=== PATIENT | male | born 1990 | race Caucasian/White ===

== ENCOUNTER 2023-02-25 14:29 | Outpatient (CLI) | payer OTHER ==
--- NOTE | 2023-02-25 15:12 | Sleep Patient Instructions ---
Sleep Center Visit Summary - Patient Visit Information Reason for Visit: Initial consult for evaluation of sleep disordered breathing and other sleep issues. - Patient Instructions Instructions Attached: Sleep Study, Sleep Clinic Visit, Sleep Study Home Monitor Additional Instructions: You will be completing a sleep study, either an in-lab polysomnography (PSG) or home sleep study (HST). You will follow-up in the sleep care office after the sleep study is completed to hear the results and talk about therapy, if needed. You will be called by our office staff to schedule this appointment, but you may contact us with any questions. - Clinic Information Contact: [facility] [address] [place] [address] [email or web address] T: [phone]
--- NOTE | 2023-02-25 15:17 | SLEEP CARE CONSULTATION ---
Information from patient questionnaire entered by Seth Dowell. I have reviewed and concur with the information entered by Seth Dowell. This document represents the service I personally performed and the decisions made by me, Sammie Galarza ARNP. History of Present Illness Service Date and Time: 02/25/2023 1429 Reason for Visit: New patient Chief Complaint: reports: Unrefreshed sleep, Snoring, Observed pauses in breathing, Fatigue Date of Onset: 18MONTHS Usual bedtime: 9-10PM Time it takes to fall asleep: 30-60MINS Snores at night: Yes Observed to quit breathing while asleep: Yes Sleeps alone due to snoring: No Number of times waking at night: 1 Reasons for waking at night: reports: Choking, Snoring, Gasping for air (occasionally) Toss, Turn, or Twitch while sleeping: Yes Recalls having dreams: Yes (sometimes) Usually gets out of bed at: 530AM; weekends may sleep in a little later, 7-8 AM Feels refreshed in the morning: No Morning headache: No Sleepy or fatigued during the day: Yes Ever fallen asleep while driving: No Takes day naps: Yes (1 time a week, just depends) Dreams during day naps: No Prior sleep studies: No Additional HPI information: I had the pleasure of seeing DARIEL GOTTI today regarding the possibility of him having a sleep disorder. His current complaints are unrefreshed sleep, snoring, observed pauses in breathing and fatigue. He states his tells him that he stops breathing at night. He also snores. He states he is always fatigued during the day. He has tried to use wedges to elevate his head with limited success to reduce snoring. 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 Patient is and [place] in [place]. Have you smoked in the past 12 months: No (switched to vaping in 2018 and then stopped in 2019) Cigarettes per day (20/pack): 10 Years of smokin Quit date: 2017 Smoking Pack Years: 6.0 Alcohol use: Yes Alcohol amount and frequency: 1WEEK Caffeine use: Yes Caffeine amount and frequency: 2 CUPS EVERY DAY Family History Family history of sleep disordered breathing: Yes Family Hx Sleep Apnea: Father: Snoring, Sleep apnea - Treated, Sibling: Snoring Allergies and Home Medications Known drug allergies: No Drug allergies reviewed: Yes Home medication list reviewed: Yes (no daily medications) Review of Systems Weight gain over past 5 years: 15 Cardiovascular: denies: high blood pressure Respiratory: denies: shortness of breath Gastrointestinal: reports: heartburn, difficulty swallowing Neurological: denies: headaches Psychiatric: reports: anxiety. denies: depression Ear/Nose/Throat: reports: wisdom teeth removed. denies: tonsillectomy Musculoskeletal: reports: joint pain Physical Exam Vital signs obtained and entered by: SETH Leblanc MA Blood Pressure: 134/84 (LEFT ARM) Cuff size: long Heart Rate: 77 O2 Saturation: 97 Height: 5 ft 8 in Weight: 222 lb Body Mass Index: 33.7 BMI Classification: Obese Neck circumference: 16.5 Mouth and throat: narrow oropharynx Soft palate: long Hard palate: normal Uvula: normal Uvula visualization: 25% Mallampati Class III Tongue: enlarged in size with teeth de [place] rosa on lateral edges Tonsils: small Neck: normal w/o lymphadenopathy or thyromegaly Heart: regular rate and rhythm Lungs: clear bilaterally Impression and Plan 1. Suspected Obstructive Sleep Apnea-Hypopnea Syndrome, as suggested by a history of loud and irregular snoring, observed cessation of breath while asleep, gasping or choking in sleep, unrefreshed sleep and cognitive impairment. Narrow oropharynx and obesity are common predisposing factors for obstructive sleep apnea-hypopnea syndrome. I recommend proceeding to polysomnography to confirm the diagnosis and to assess severity. If the patient has significant sleep disordered breathing, a manual CPAP titration study will also be performed to find the optimal treatment pressure. I informed the patient of what the sleep studies involve and after some discussion, obtained agreement to proceed. The pathophysiology of obstructive sleep apnea-hypopnea syndrome was discussed with the patient and health risks of cardiovascular and cerebrovascular disease if not treated. Risks of drowsy driving discussed in detail and patient advised to avoid long distance driving and to rod puller and coiler at the first sign of drowsiness. Patient agreed to plan. * Schedule polysomnography +- manual CPAP titration study and return in 1-2 weeks after the study to discuss result and initiate therapy. * Avoid long distance driving or driving when feeling sleepy. * Avoid alcohol, sedative and muscle relaxant around bedtime. * Attempt to lose weight. * Review instructions provided by trained office staff on how to prepare for the sleep study. * Return for follow-up after sleep study completed. Counseling Topics: Weight loss health impact Visit Type: In Office Time Spent with Patient (minutes): 30 Provider Statement: I spent 100% of the Face to Face Visit with the patient with greater than 50% spent counseling the patient and coordination of care.
[2023-02-25 15:22] VITALS: BP 134/84
== END 2023-02-25 14:30 | disposition home or self-care (01) ==
LOC: SC 14:29
PROVIDERS: ATTEND Nurse Practitioner Family
DX: R53.83 Other fatigue (principal); E66.9 Obesity, unspecified; Z68.33 Body mass index [BMI] 33.0-33.9, adult; Z87.891 Personal history of nicotine dependence
CPT/HCPCS: 99203; 99212

== ENCOUNTER 2023-03-04 08:00 | Outpatient (CLI) | payer OTHER ==
[2023-03-05 22:55] LABS: CHLAMYDIA TRACHOMATIS DNA NEGATIVE (NEGATIVE); NEISSERIA GONORRHOEAE DNA NEGATIVE (NEGATIVE); TRICHOMONAS VAGINALIS DNA NEGATIVE (NEGATIVE)
== END 2023-03-04 23:59 | disposition home or self-care (01) ==
LOC: LAB.N 08:00
PROVIDERS: ATTEND Physician Assistant
DX: R39.89 Other symptoms and signs involving the genitourinary system (principal)
CPT/HCPCS: 87086; 87491; 87591; 87661

== ENCOUNTER 2023-03-06 15:18 | Emergency (ER) | payer OTHER ==
--- NOTE | 2023-03-06 15:40 | ED Physician Documentation ---
PD HPI ABD PAIN - Stated complaint Stated Complaint: BACK PX - Chief complaint Chief Complaint: General - History obtained from History obtained from: Patient - History of Present Illness Timing - onset: How many days ago (3) Timing - duration: Days (3) Timing - details: Still present, Waxing and waning Quality: Cramping, Aching, Pain Location: RLQ Radiation: Right flank Improved by: No: Laying still, BM Worsened by: No: Moving, Breathing Associated symptoms: Nausea, Dysuria (some discomfort with urination and urine test showed some blood in urine at Walk In 2 days ago.). No: Fever, Vomiting Similar symptoms before: Has not had sx before Recently seen: Clinic (walk in 2 days ago.) Review of Systems Constitutional: denies: Fever, Chills Nose: denies: Rhinorrhea / runny nose, Congestion Throat: denies: Sore throat Cardiac: denies: Chest pain / pressure, Palpitations Respiratory: denies: Dyspnea, Cough PD PAST MEDICAL HISTORY - Past Medical History Cardiovascular: None Respiratory: None Endocrine/Autoimmune: None - Present Medications Home Medications: Ambulatory Orders Medication Instructions Recorded Confirmed No Known Home Medications 02/25/23 02/25/23 - Allergies Allergies/Adverse Reactions: Allergies Allergy/AdvReac Type Severity Reaction Status Date / Time No Known Drug Allergies Allergy Verified 03/06/23 15:29 PD ED PE NORMAL - Vitals Vital signs reviewed: Yes - General General: Alert and oriented X 3, No acute distress, Well developed/nourished - Neck Neck: Supple, no meningeal sign, No adenopathy - Cardiac Cardiac: RRR, No murmur - Respiratory Respiratory: Clear bilaterally - Abdomen Abdomen: Normal bowel sounds, Soft, Non distended, No organomegaly, Other (spome tender without guarding nor percussion tender right mid to lower abd. No rash nor sores. back with some right flank pain to percussion. No rash/sores. ) Results - Vitals Vitals: Vital Signs - 24 hr 03/06/23 03/06/23 15:23 17:11 Temperature 36.4 C L Heart Rate 77 67 Respiratory 17 16 Rate Blood Pressure 126/74 142/99 H O2 Saturation 98 100 Oxygen O2 Source Room air - Rads (name of study) KUB CT Relevant Findings:: Prelim report reviewed (no kidney stones nor hydroneophrosis. No other acute process. Moderate stool right ascending colon.), See rad report PD Medical Decision Making - ED course Complexity details: reviewed results (KUB CT without stones, hydronephrosis, nor other acute process for the pain. /sp appy. comment by radiology is moderate amount stool right/ascending abd. ), considered differential (pain sounds reasonable for kidney stone but consider other causes. Discussion with patient, since pain for few days now, is to do CT. He had UA in walk in 2 days ago, so defer here. ), d/w patient, d/w family (spouse) Departure - Departure Disposition: Home, Self Care Clinical Impression: Right sided abdominal pain Condition: Stable Record reviewed to determine appropriate education?: Yes Instructions: ED Abdominal Pain Unkn Cause Male Comments: Your CT scan does not show any signs of kidney stones nor kidney inflammation or swelling. Your appendix is missing as you new. The CT report does not identify any other obvious acute abnormality. They do comment on a moderate amount of stool in the right colon so this may be causing some element of pain just from stretching of the intestine. I would suggest a stool softener this evening and tomorrow. You can use your 's MiraLAX at home dose tonight and 2 or 3 tomorrow. Additionally you could use docusate 100 mg daily for the next 7 to 10 days to keep things modulated soft. Regarding the pain, I would suggest anti-inflammatory such as ibuprofen 6 or milligrams 2-3 times daily with food. To that add Tylenol every 4-6 hours if needed. Follow-up with your primary if not improved over the next few days and return or follow-up sooner if you develop other symptoms as well that may suggest alternate diagnoses (skin rash, muscular component, fevers, more discomfort urinating, etc.). Otherwise normal activity is okay. Regular diet. Discharge Date/Time: 03/06/23 17:28
--- OUTSIDE RECORDS SUMMARY | 2023-03-06 15:46 | EXTERNAL MEDICAL SUMMARY RPT | Continuity of Care Document ---
Author Name Unknown Address [address] [place] [address] Phone Organization [facility] Address [address] [place] [address] Phone Care Team Providers Care Clinical Lab Assistant Name Role Phone Unavailable Unavailable Unavailable Douglas Diaz, Liban Unavailable Unavailabl e Medications date description facility 2022-12-07 00:00 No Known Medications All Problems date description facility 2022-12-07 00:00 Lesion of ulnar nerve All 2022-12-07 00:00 Ulnar neuropathy All 2022-12-07 00:00 Lesion of ulnar nerve, left upp er limb All Procedures date description facility 2022-12-07 00:00 Visit Code Hold All Social History date description facility 2022-12-07 00:00 Unknown if ever smoked All 2022-12-08 00:00 Unknown if ever smoked All Vital Signs date measurement value units 2022-12-07 00:00 BMI 35.37 kg/m2 2022-12-07 00:00 BP_diastolic 90 mmHg 2022-12-07 00:00 BP_systolic 150 mmHg 2022-12-07 00:00 heart_rate 83 /min 2022-12-07 00:00 height_metric 172.72 cm 2022-12-07 00:00 height_standard 68 in 2022-12-07 00:00 respiration_rate 18 /min 2022-12-07 00:00 temperature_metric 36.11 C 2022-12-07 00:00 temperature_standard 97 F 2022-12-07 00:00 weight_metric 105.14 kg 2022-12-07 00:00 weight_standard 231.8 lb
--- NOTE | 2023-03-06 16:52 | CT Report ---
PROCEDURE: CT abdomen pelvis without contrast INDICATIONS: right abd to flank pain TECHNIQUE: A CT scan of the abdomen and pelvis was performed without the use of intravenous contrast. Images we re recorded and evaluated at appropriate window settings. Reformats: coronal and sagittal. For radiat ion dose reduction, the following was used: automated exposure control, adjustment of mA and/or kV ac cording to patient size. COMPARISON: None. FINDINGS: Image quality: Excellent. Lung bases and heart: Unremarkable. Liver: No solid mass. Gallbladder and biliary tree: Spleen: Splenomegaly, 14.1 cm Pancreas: No pancreatic ductal dilation. Adrenals: No adrenal nodule. Kidneys and ureters: No hydronephrosis. No renal cystic lesion which requires follow up. No solid mas s. Bowel and peritoneum: No bowel distension. No pathologic free fluid. Appendectomy. Moderate fecal ty ris in the right and transverse colon Lymph nodes: No central or retroperitoneal adenopathy. Vessels: No infrarenal aortic aneurysm. PELVIS Reproductive organs: Unremarkable. Bladder: No wall thickness, accounting for underdistention. Pelvic lymph nodes: No pelvic adenopathy by size criteria. Bones: No aggressive osseous abnormality. Other: No significant ventral or inguinal hernia. IMPRESSION: No evidence of nephrolithiasis or obstructive uropathy. Appendectomy. Moderate to fecal debris in the right and transverse colon. No obstruction. Reviewed by: Quinton Harvey MD on 03/06/2023 3:50 PM AKDT Approved by: Quinton Harvey MD on 03/06/2023 3:50 PM AKDT Station ID: [id number]
[2023-03-06] MEDS ORDERED: IBUPROFEN 600 MG TABLET PO STA (17:12)
[2023-03-06 17:14] VITALS: BP 142/99
== END 2023-03-06 17:28 | disposition home or self-care (01) ==
LOC: ED 15:18
DX: R10.31 Right lower quadrant pain (principal)
CPT/HCPCS: 74176; 99283; 99284; A9270

== ENCOUNTER 2023-03-14 23:04 | Emergency (ER) | payer OTHER ==
--- NOTE | 2023-03-14 23:47 | ED Physician Documentation ---
PD HPI MALE - Stated complaint Stated Complaint: MALE - Chief complaint Chief Complaint: General - History obtained from History obtained from: Patient - Additional information Additional information: Patient is a 33-year-old male presenting for evaluation of right testicular pain starting around 930. He describes it as a dull ache. It does radiate into the abdomen and back. He reports having similar episodes in the past of the testicular pain but it has not had the radiation that he is feeling tonight. In the past he reports that 1 episode was due to A varicocele. Patient denies any issues with urination. No blood with urination. No abnormal penile discharge or lesions.No fever. No nausea or vomiting. Review of Systems Constitutional: denies: Fever Cardiac: denies: Chest pain / pressure Respiratory: denies: Dyspnea GI: denies: Vomiting : reports: Testicular pain. denies: Dysuria PD PAST MEDICAL HISTORY - Past Medical History Cardiovascular: None Respiratory: None Endocrine/Autoimmune: None - Present Medications Home Medications: Ambulatory Orders Medication Instructions Recorded Confirmed No Known Home Medications 02/25/23 02/25/23 - Allergies Allergies/Adverse Reactions: Allergies Allergy/AdvReac Type Severity Reaction Status Date / Time No Known Drug Allergies Allergy Verified 03/06/23 15:29 PD ED PE NORMAL - General General: Alert and oriented X 3, No acute distress, Well developed/nourished - HEENT HEENT: Atraumatic, Moist mucous membranes - Neck Neck: Supple, no meningeal sign - Cardiac Cardiac: RRR - Respiratory Respiratory: No respiratory distress, Clear bilaterally - Abdomen Abdomen: Normal bowel sounds, Soft, Non tender, Non distended - Male Male : Sea Kayaking Guide present (CHASIDY Nam), Other (Right testicular tenderness to palpation, no swelling or erythema, no mass or firmness, normal cremasseteric reflex bilaterally, normal testicular lie) - Back Back: No CVA TTP Results - Vitals Vitals: Vital Signs - 24 hr 03/14/23 03/15/23 23:10 00:01 Temperature 36.2 C L Heart Rate 75 71 Respiratory 18 16 Rate Blood Pressure 131/84 H 128/78 O2 Saturation 98 99 Oxygen O2 Source Room air PD Medical Decision Making - ED course ED course: Patient presenting for evaluation of right testicular pain for the past 2 hours. Testicle with mild tenderness but with normal lie and intact cremasteric reflex. No erythema or swelling or firmness. Unfortunately ultrasound is not available in our hospital At the time of patient's presentation. We additionally do not have urology coverage. I did speak with ER physician at [facility]. They do have ultrasound but no urology. I then spoke with Dr. Ferrell at [facility] and he graciously accepted the patient for transfer. Patient is here with his and they prefer to go by POV. The understands the risks of driving themselves versus taking ambulance.They understand to go directly to the emergency department and not to stop elsewhere. Departure - Departure Disposition: 02 Transfer Acute Care Hosp Clinical Impression: Right testicular pain Condition: Stable Comments: Please go directly to [facility] emergency department. I spoke to Dr. Ferrell and they are expecting you in their emergency department. You need to have an ultrasound as soon as possible To make sure that your testicle is okay. Please do not stop anywhere else and go directly to the emergency department. Located in: [facility] Address: [address] [place] [id number] Discharge Date/Time: 03/15/23 00:01
[2023-03-15 00:07] VITALS: BP 128/78
== END 2023-03-15 00:01 | disposition short-term general hospital (02) ==
LOC: ED 23:04
DX: N50.811 Right testicular pain (principal)
CPT/HCPCS: 99284; 99285

== ENCOUNTER 2023-03-19 20:06 | Emergency (ER) | payer OTHER ==
--- NOTE | 2023-03-19 20:35 | ED Physician Documentation ---
History of Present Illness - Stated complaint Stated Complaint: MALE - Chief complaint Chief Complaint: General - Additonal information Additional information: 33-year-old male presents emergency department for evaluation of acute onset l eft testicular pain. He states that he has pain within the testicle but he feels there is a strain or pooling underneath the base of the penis. Patient was seen in this ER about 3 days ago for right scrotal and testicular pain. At that time no ultrasound was available and the patient went to [facility] where he had ultrasound imaging completed. He reports that they found calcium deposits within the scrotum and testes. The right testicular pain has a bated and the testicular pain in the left is new today. He reports that it feels different than the pain on the right side a few days ago. No dysuria. Review of Systems Constitutional: reports: Reviewed and negative : reports: Testicular pain. denies: Dysuria Skin: reports: Reviewed and negative PD PAST MEDICAL HISTORY - Past Medical History Cardiovascular: None Respiratory: None Endocrine/Autoimmune: None - Present Medications Home Medications: Ambulatory Orders Medication Instructions Recorded Confirmed No Known Home Medications 02/25/23 02/25/23 - Allergies Allergies/Adverse Reactions: Allergies Allergy/AdvReac Type Severity Reaction Status Date / Time No Known Drug Allergies Allergy Verified 03/19/23 20:11 PD ED PE NORMAL - General General: Alert and oriented X 3, No acute distress - Neck Neck: Supple, no meningeal sign - Cardiac Cardiac: RRR, No murmur - Respiratory Respiratory: No respiratory distress - Abdomen Abdomen: Normal bowel sounds, Soft - Male Male : Hedis Coordinator present (Roosevelt the RN), Other (Positive cremaster bilaterally with normal lie. Mild tenderness elicited with palpation of the left testie. There was no scrotal swelling erythema or lesions. No penile discharge.) Results - Vitals Vitals: Vital Signs - 24 hr 03/19/23 20:11 Temperature 36.5 C Heart Rate 80 Respiratory 16 Rate Blood Pressure 134/84 H O2 Saturation 98 Oxygen O2 Source Room air - Labs Labs: Laboratory Tests 03/19/23 20:34 Urine Color YELLOW Urine Clarity CLEAR Urine pH 6.0 Ur Specific [place] 1.010 Urine Protein NEGATIVE Urine Glucose (UA) NEGATIVE Urine Ketones NEGATIVE Urine Occult Blood NEGATIVE Urine Nitrite NEGATIVE Urine Bilirubin NEGATIVE Urine Urobilinogen 0.2 (NORMAL) Ur Leukocyte Esterase NEGATIVE Ur Microscopic Review NOT INDICATED Urine Culture Comments NOT INDICATED - Rads (name of study) scrotum US Relevant Findings:: Other (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 No torsion no hernia.) PD Medical Decision Making - ED course Complexity details: reviewed results, re-evaluated patient, d/w patient, d/w family ED course: 33-year-old male presents emergency department for evaluation of left testicular pain. Was seen in this emergency department several days ago for right testicular pain ultimately was transferred to [facility] where he reports an ultrasound was done and it showed microliths. He reports the pain today feels different than it did several days ago. Recently this patient has undergone CT imaging of the abdomen which was benign. He also had STI testing which was negative. Today in the emergency department his urinalysis as interpreted by myself is without findings of infection. His scrotal and testicular exam showed mild tenderness of the left testy but no scrotal erythema or swelling. He had normal cremasteric and lie. Subsequently an ultrasound again shows left testicular microliths. I discussed this finding with the patient and his at the bedside. They will request referral to urology through [facility]. In general I made the recommendation for Tylenol and ibuprofen for discomfort. Clinically the patient is without findings to suggest torsion, epididymitis, orchiditis, UTI or inguinal hernias. He is discharged home in stable condition with usual emergent return precautions discussed. Departure - Departure Disposition: 01 Home, Self Care Clinical Impression: Testicular microlithiasis, Left testicular pain Condition: Stable Record reviewed to determine appropriate education?: Yes Comments: As discussed at the bedside the ultrasound today shows left testicular micro liths. These are little calcium deposits within the testicle. It is not clear at this time with the cause of your Sloan though they are typically benign in nature. However I would advise you to follow very closely with your PCP through [facility] as you may benefit from referral to urology. In general I would expect Tylenol or ibuprofen [id number] for discomfort. Reasons to return to the emergency department would be the development of sudden severe testicular pain swelling of the scrotum, or any fevers.
[2023-03-19 20:39] LABS: BILIRUBIN,URINE NEGATIVE (NEGATIVE); GLUCOSE, URINE (UA) NEGATIVE (NEGATIVE); KETONES,URINE (UA) NEGATIVE (NEGATIVE); LEUKOCYTE ESTERASE, URINE NEGATIVE (NEGATIVE); NITRITE,URINE NEGATIVE (NEGATIVE); OCCULT BLOOD,URINE NEGATIVE (NEGATIVE); PROTEIN,URINE NEGATIVE (NEGATIVE); UROBILINOGEN,URINE 0.2 (NORMAL) E.U./dL (NORMAL)
[2023-03-19 20:40] LABS: CLARITY,URINE CLEAR (CLEAR)
[2023-03-19 21:37] VITALS: BP 128/80
--- NOTE | 2023-03-19 21:50 | Ultrasound Report ---
PROCEDURE: Testicle w/Doppler INDICATIONS: Left scrotum and testicular pain TECHNIQUE: Real-time scanning was performed of the scrotum and testicles, with image documentation. Color and p ulse Doppler interrogation was performed of both testicles. COMPARISON: None. FINDINGS: Right: Testicle is normal in size at 4.8 x 2.2 x 3.2 cm, and homogenous in echotexture. Epididymis is normal in overall size and morphology. Trace hydrocele without varicoceles. Overlying scrotal ski n is normal in thickness. Left: Testicle is normal in size at 4.9 x 2.1 x 3.1 cm, and homogeneous in echotexture. Epididymis is normal in overall size and morphology. Trace hydrocele without varicoceles. Overlying scrotal ski n is normal in thickness. Microlithiasis is incidentally noted. Doppler: Color and pulse Doppler demonstrate normal and symmetric arterial flow in both testicles. IMPRESSION: No torsion at time of exam. Intermittent torsion cannot be excluded. Trace bilateral hydroceles. Reviewed by: Niru Sanchez MD on 03/19/2023 9:49 PM PDT Approved by: Niru Sanchez MD on 03/19/2023 9:49 PM PDT Station ID: [id number]
== END 2023-03-19 21:31 | disposition home or self-care (01) ==
LOC: ED 20:06
DX: N50.812 Left testicular pain (principal); N50.89 Other specified disorders of the male genital organs
CPT/HCPCS: 81001; 81003; 87086; 93975; 99283; 99284

== ENCOUNTER 2023-04-05 08:28 | Outpatient (CLI) | payer OTHER | END 2023-04-05 08:29 | disposition home or self-care (01) | LOC: SC 08:28 | PROVIDERS: ATTEND Nurse Practitioner Family | DX: R09.02 Hypoxemia (principal); E66.9 Obesity, unspecified; Z68.33 Body mass index [BMI] 33.0-33.9, adult | CPT/HCPCS: 95806 ==

== ENCOUNTER 2023-04-15 08:15 | Outpatient (CLI) | payer OTHER ==
--- NOTE | 2023-04-15 08:37 | Sleep Patient Instructions ---
Sleep Center Visit Summary - Patient Visit Information Reason for Visit: Sleep Study Followup - Patient Instructions Instructions Attached: Sleep Clinic Visit, Sleep Study Additional Instructions: You will be completing a sleep study, either an in-lab polysomnography (PSG). You will follow-up in the sleep care office after the sleep study is completed to hear the results and talk about therapy, if needed. You will be called by our office staff to schedule this appointment, but you may contact us with any questions. - Clinic Information Contact: [facility] [address] [place] [address] [email or web address] T: [phone]
--- NOTE | 2023-04-15 08:41 | SLEEP CARE CONSULTATION ---
Information from patient questionnaire entered by Yoko Dowell. I have reviewed and concur with the information entered by Yoko Dowell. This document represents the service I personally performed and the decisions made by , Sammie Galarza ARNP. History of Present Illness Service Date and Time: 04/15/2023814 Initial [place] Sleepiness Scale score: 9 (02/25/23) Current [place] Sleepiness Scale score: 10 (04/15/23) Additional HPI information: DARIEL GOTTI returns for follow up and results of the recently performed home sleep study. The patient was informed of the following findings: No significant sleep disordered breathing with an average AHI of 4.4 and roselia oxygen saturation of 87%. Supine AHI slightly elevated at 5.4. I explained the pathophysiology behind obstructive sleep apnea. Patient does not have sleep apnea and was advised how weight gain could increase the risk of developing sleep apnea in the future. I strongly encouraged the patient to lose weight. Patient does not have significant sleep disordered breathing but has elevated AHI in supine position so advised positional therapy. Methods to achieve positional management therapy were discussed; such as, positioning with pillows, wearing a T-shirt with tennis balls sewn into the back, or commercially available products. Patient does not drink alcohol. Patient was cautioned about risks of drowsy driving until sleepiness symptoms resolve. Patient denies drowsy driving. Sleep Study - Results Type of Sleep Study: Polysomnography (COMPLETED 04/06/23) Prior sleep studies: No Polysomnography/Home Sleep Study results: Physician Impression: The quality of the study is good. The length of the study is adequate (> 240 minutes). Please also see the tabulated and graphic data. 1. No significant sleep disordered breathing, with an AHI of 4.4/hr and roselia SaO2 of 87%. During the study, the patient had 12 apneas (12 obstructive, 0 central, 0 mixed) and 17 hypopneas. The longest episode lasted 96.0 seconds. The few respiratory events occurred more frequently during supine sleep (supine AHI was 5.4 and non-supine, 2.04). 2. Hypoxemia (ICD-10 R09.02), mild, with the lowest oxygen saturation of 87 % and 1.3 minutes with SaO2 under 90%. Baseline oxygen saturation was normal (Average oxygen saturation was 93%). Allergies and Home Medications Known drug allergies: No Drug allergies reviewed: Yes Home medication list reviewed: Yes (no changes) Allergy and home medication list: Allergies No Known Drug Allergies Allergy (Verified 04/14/23 13:02) Review of Systems Review of systems same as previous: Yes (no changes) Physical Exam Vital signs obtained and entered by: YOKO Leblanc MA Blood Pressure: 124/72 (LEFT ARM) Cuff size: regular Heart Rate: 71 O2 Saturation: 99 Height: 5 ft 8 in Weight: 213 lb 6.4 oz Body Mass Index: 32.4 BMI Classification: Obese Impression and Plan 1. Suspected Obstructive Sleep Apnea-Hypopnea Syndrome, as suggested by a history of loud and irregular snoring, observed cessation of breath while asleep, gasping or choking in sleep, unrefreshed sleep, cognitive impairment, and excessive daytime sleepiness. His HST was borderline mild CIPRIANO with elevated supine AHI. I recommend proceeding to polysomnography to confirm the diagnosis and to assess severity. I obtained agreement to proceed. The pathophysiology of obstructive sleep apnea-hypopnea syndrome was discussed with the patient and health risks of cardiovascular and cerebrovascular disease if not treated. Risks of drowsy driving discussed in detail and patient advised to avoid long distance driving and to ice puller at the first sign of drowsiness. Patient agreed to plan. I advised patient to avoid supine sleep due to elevated supine AHI and he voiced understanding. * Schedule polysomnography * Avoid long distance driving or driving when feeling sleepy. * Avoid supine sleep * Attempt to lose weight. * Review instructions provided by trained office staff on how to prepare for the sleep study. * Return for follow-up after sleep study completed. Counseling Topics: Sleeping position, Weight loss health impact Visit Type: In Office Time Spent with Patient (minutes): 14 Provider Statement: I spent 100% of the Face to Face Visit with the patient with greater than 50% spent counseling the patient and coordination of care.
[2023-04-15 08:44] VITALS: BP 124/72
== END 2023-04-15 08:16 | disposition home or self-care (01) ==
LOC: SC 08:15
PROVIDERS: ATTEND Nurse Practitioner Family
DX: R06.83 Snoring (principal); R06.81 Apnea, not elsewhere classified; G47.8 Other sleep disorders; R41.89 Other symptoms and signs involving cognitive functions and awareness; G47.10 Hypersomnia, unspecified; E66.9 Obesity, unspecified; Z68.32 Body mass index [BMI] 32.0-32.9, adult
CPT/HCPCS: 99212

== ENCOUNTER 2023-06-26 19:41 | Outpatient (CLI) | payer OTHER | END 2023-06-26 19:42 | disposition home or self-care (01) | LOC: SC 19:41 | PROVIDERS: ATTEND Nurse Practitioner Family | DX: G47.33 Obstructive sleep apnea (adult) (pediatric) (principal) | CPT/HCPCS: 95810 ==

== ENCOUNTER 2023-08-04 13:47 | Outpatient (CLI) | payer OTHER ==
--- NOTE | 2023-08-04 14:28 | Sleep Patient Instructions ---
Sleep Center Visit Summary - Patient Visit Information Reason for Visit: Sleep study follow-up - Patient Instructions Instructions Attached: CPAP, CPAP Dc Additional Instructions: You are being started on CPAP therapy with pressure setting at 4-15 cmH2O. You will need to call the sleep care office to set up your follow up once you have your APAP machine and we will schedule a visit to check compliance and response to therapy at that time. You may call the office with any concerns about pressure feeling too low or too much for adjustment, if needed. You should contact DME supplier for any questions or concerns about mask or equipment. Please call office to schedule a follow up appointment in the sleep care office one month after obtaining new device. - Clinic Information Contact: [facility] [address] [place] [address] [email or web address] T: [phone]
--- NOTE | 2023-08-04 14:29 | SLEEP CARE CONSULTATION ---
Information from patient questionnaire entered by Yoko Dowell. I have reviewed and concur with the information entered by Yoko Dowell. This document represents the service I personally performed and the decisions made by me, Sammie Galarza ARNP. History of Present Illness Service Date and Time: 08/04/2023 1347 Initial [place] Sleepiness Scale score: 9 (02/25/23) Current [place] Sleepiness Scale score: 10 (08/04/23) Additional HPI information: DARIEL GOTTI returns for follow up and results of the recently performed polysomnography. The sleep study showed mild obstructive sleep apnea with an average AHI of 11.1 and roselia oxygen saturation of 82%. I explained the pathophysiology behind obstructive sleep apnea. We then spent quite a bit of time discussing different treatment options. For mild obstructive sleep apnea, surgery and oral appliance are alternatives to nasal CPAP therapy but in moderate or severe cases, nasal CPAP is the most effective and reliable treatment. Because apnea is primarily in supine position, then positional management therapy could be effective. Methods discussed such as positioning with pillows, using a T-shirt with tennis balls in the back, and shown commercial products that have a pillow format on back to prevent supine sleep. I reviewed the impact of weight changes on sleep apnea and strongly recommended losing weight. After some discussion, the patient opted to go with the nasal CPAP therapy. Nasal autoCPAP set at 4-15 cmH20 will be ordered with rationale explained. A manual titration study will be ordered if unable to find optimal pressure with office adjustments. I explained how CPAP machine works and what to expect when using the machine. Using CPAP every night in order to get used to it was emphasized. Patient advised to put CPAP mask on before getting into bed so as not to fall asleep without CPAP. To assist acclimation to CPAP use, it could also be used for a short time during day while reading or watching TV. The patient was instructed to call the CPAP supplier to discuss any mechanical problem that may occur. If the mask given is uncomfortable or is difficult to keep on through the night even with adjustment, contact the CPAP supplier as many will replace with another mask style if notified before 30 days. If snoring or perceives is not getting enough air or too much air from the machine, notify this office. Patient counseled not drink alcohol less than 4 hours before bedtime as it can increase snoring and apnea. Patient was cautioned about risks of drowsy driving until sleepiness symptoms resolve. Patient denies drowsy driving. Sleep Study - Results Type of Sleep Study: Polysomnography (COMPLETED 06/26/23) Prior sleep studies: No Polysomnography/Home Sleep Study results: IMPRESSION: The quality of the study is good. The patient had normal sleep efficiency. The sleep architecture was also normal. Respiratory monitoring showed mild obstructive sleep apnea- hypopnea (AHI = 11.1) associated with oxyhemoglobin desaturation and mild hypoxia (roselia oxygen saturation of 82 %) but not sleep fragmentation. The respiratory events occurred almost exclusively during supine sleep (supine AHI = 12.2; non-supine = 1.26). Snore was light to moderate in intensity. There was no significant periodic leg movement of sleep. Cardiac rhythm was normal sinus rhythm without significant arrhythmia. No abnormal behavior (parasomnia) observed during the night. Allergies and Home Medications Known drug allergies: No Drug allergies reviewed: Yes Home medication list reviewed: Yes (Bactrim for urology) Allergy and home medication list: Allergies No Known Drug Allergies Allergy (Verified 08/03/23 15:17) Review of Systems Review of systems same as previous: Yes (NO CHANGE) Physical Exam Vital signs obtained and entered by: YOKO Lbelanc MA Blood Pressure: 122/76 (LEFT ARM) Cuff size: regular Heart Rate: 67 O2 Saturation: 97 Height: 5 ft 8 in Weight: 217 lb 9.6 oz Body Mass Index: 33.0 BMI Classification: Obese Impression and Plan 1. Obstructive Sleep Apnea-Hypopnea Syndrome, mild, with lowest oxygen saturation of 82%. Obviously this is the cause of the patients symptoms of unrefreshed sleep, and excessive daytime sleepiness. Positive pressure therapy could benefit gastric reflux. As mentioned above, the patient will be started on nasal autoCPAP therapy with pressure set at 4-15 cmH2O. Compliance guidelines also reviewed. A copy of compliance guidelines will be given for reference at check out. Because the apnea is more severe supine, I instructed to avoid sleeping supine using pillow positioning until able to start CPAP use. 2. Hypoxemia, unspecified, with a roselia oxygen saturation of 82% and 25.6 minutes spent under 90%. The baseline oxygen saturation was normal with an average oxygen saturation of 91%. * Nasal auto CPAP therapy, pressure at 4-15 cm H2O. * Attempt to lose weight. * Avoid alcohol consumption near bedtime. * Avoid supine sleep until using CPAP. * The patient is again cautioned about driving until sleepiness completely resolves. * Return one month after CPAP obtained. I will assess response to therapy and compliance at that time. Counseling Topics: Weight loss health impact Prescriptions: Auto CPAP Visit Type: In Office Time Spent with Patient (minutes): 21 Provider Statement: I spent 100% of the Face to Face Visit with the patient with greater than 50% spent counseling the patient and coordination of care.
[2023-08-04 14:31] VITALS: BP 122/76; O2SAT 97
== END 2023-08-04 13:48 | disposition home or self-care (01) ==
LOC: SC 13:47
PROVIDERS: ATTEND Nurse Practitioner Family
DX: G47.33 Obstructive sleep apnea (adult) (pediatric) (principal); R09.02 Hypoxemia; E66.9 Obesity, unspecified; Z68.33 Body mass index [BMI] 33.0-33.9, adult
CPT/HCPCS: 99212; 99213

== ENCOUNTER 2023-10-27 19:42 | Emergency (ER) | payer OTHER ==
--- NOTE | 2023-10-27 20:03 | ED Physician Documentation ---
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 He went to a walk-in clinic where reportedly an EKG was done and abnormal. They did not call ahead so I do not know what specific results were abnormal but he was referred to the emergency department for further evaluation and treatment. Denies chest pain. Is feeling anxious about all this. PD PAST MEDICAL HISTORY - Past Medical History Past Medical History: No Cardiovascular: None Respiratory: None Endocrine/Autoimmune: None - Past Surgical History Past Surgical History: Yes General: Appendectomy HEENT: Other - Present Medications Home Medications: Ambulatory Orders Medication Instructions Recorded Confirmed Sulfamethoxazole/Trimethoprim See Rx Instructions .ROUTE .COMPLEX 08/04/23 08/04/23 [Bactrim 400-80 mg Tablet] - Allergies Allergies/Adverse Reactions: Allergies Allergy/AdvReac Type Severity Reaction Status Date / Time No Known Drug Allergies Allergy Verified 10/27/23 19:51 - Social History Does the pt smoke?: No Smoking Status: Former smoker Does the pt drink ETOH?: No Does the pt have substance abuse?: No - Immunizations Immunizations are current?: Yes - POLST Patient has POLST: No PD ED PE NORMAL - Vitals Vital signs reviewed: Yes - General General: Alert and oriented X 3, No acute distress - HEENT HEENT: PERRL, EOMI - Neck Neck: Supple, no meningeal sign, No bony TTP - Cardiac Cardiac: RRR, No murmur - Respiratory Respiratory: No respiratory distress, Clear bilaterally - Abdomen Abdomen: Non tender - Extremities Extremities: No edema, No calf tenderness / cord - Neuro Neuro: Alert and oriented X 3, Normal speech Results - Vitals Vitals: Vital Signs - 24 hr 10/27/23 10/27/23 19:51 20:57 Temperature 36.5 C 36.8 C Heart Rate 88 72 Respiratory 16 14 Rate Blood Pressure 134/85 H 120/85 H O2 Saturation 100 97 Oxygen O2 Source Room air - EKG (time done) 2003 EKG releavant findings:: EKG personally interpreted by author of this note. Relevant findings are: Rate: Rate (enter#) (68) Rhythm: NSR [place]: Normal Intervals: Normal SC QRS: Normal Ischemia: Q waves (Q wave in 3 only). No: ST elevation c/w ischemia, ST depression Compare to prior EKG: Old EKG unavailable Computer interpretation: Agree with computer - Labs Labs: Laboratory Tests 10/27/23 10/27/23 20:20 20:20 WBC 5.4 RBC 5.52 Hgb 16.4 Hct 46.5 MCV 84.2 MCH 29.7 MCHC 35.3 RDW 11.9 L Plt Count 176 MPV 8.6 Neut # (Auto) 2.9 Lymph # (Auto) 1.9 Sutter # (Auto) 0.3 Eos # (Auto) 0.3 Baso # (Auto) 0.0 Absolute Nucleated RBC 0.00 Nucleated RBC % 0.0 Sodium 139 Potassium 3.4 L Chloride 104 Carbon Dioxide 29 Anion Gap 6.0 BUN 13 Creatinine 0.9 Estimated GFR (MDRD) 98 Glucose 103 Calcium 9.7 Total Bilirubin 0.4 AST 16 ALT 32 Alkaline Phosphatase 56 Total Protein 7.0 Albumin 4.8 Globulin 2.2 Albumin/Globulin Ratio 2.2 PD Medical Decision Making - ED course ED course: He presents with nonspecific dizziness without chest pain. He came from the walk-in clinic where it was reported he had an abnormal EKG but the results of which in the details are not clear. Here his EKG shows normal sinus rhythm with a Q wave in Lead III which can be a normal variant. Given his symptoms which would otherwise lead to a low pretest probability of active heart issue I do not think further testing here is negative. Blood work was unremarkable. Follow-up advised for consideration for echo. Departure - Departure Disposition: 01 Home, Self Care Clinical Impression: Dizziness Condition: Good Record reviewed to determine appropriate education?: Yes Instructions: ED Dizziness [facility] Comments: As discussed, your EKG shows a Q wave in lead III. This is generally considered to be a normal variant and not necessarily a finding consistent with actual heart disease. That said out of an abundance of caution I would recommend you follow-up with your PCM and consider follow-up echocardiogram. Otherwise your blood work looks fine, take it easy tonight. Return for new or worsening symptoms. Call your doctor to arrange a follow-up appointment, make the next available appointment. In the interim, return anytime if worse or if new symptoms develop. Forms: PCP List Discharge Date/Time: 10/27/23 20:57
[2023-10-27 20:28] LABS: BASOPHILS % (AUTO) 0.7 %; EOSINOPHILS # (AUTO) 0.3 10^3/uL (0.0-0.7); HCT - HEMATOCRIT 46.5 % (42.0-52.0); HGB - HEMOGLOBIN 16.4 g/dL (14.0-18.0); LYMPHOCYTES # (AUTO) 1.9 10^3/uL (1.5-3.5); MEAN CORPUSCULAR HEMOGLOBIN 29.7 pg (27.0-31.0); MEAN CORPUSCULAR HGB CONC 35.3 g/dL (32.0-36.0); MEAN CORPUSCULAR VOLUME 84.2 fL (80.0-94.0); MEAN PLATELET VOLUME 8.6 fL (7.4-11.4); MONOCYTES # (AUTO) 0.3 10^3/uL (0.0-1.0); MONOCYTES % (AUTO) 6.3 %; NEUTROPHILS # (AUTO) 2.9 10^3/uL (1.5-6.6); NEUTROPHILS % (AUTO) 52.8 %; PLT - PLATELET COUNT 176 10^3/uL (130-450); RED BLOOD COUNT 5.52 10^6/uL (4.70-6.10); RED CELL DISTRIBUTION WIDTH 11.9 % (12.0-15.0); WHITE BLOOD COUNT 5.4 x10^3/uL (4.8-10.8)
[2023-10-27 20:44] LABS: ALBUMIN 4.8 g/dL (3.2-5.5); ALBUMIN/GLOBULIN RATIO 2.2 (1.0-2.2); BILIRUBIN,TOTAL 0.4 mg/dL (0.2-1.0); CALCIUM 9.7 mg/dL (8.5-10.3); CREATININE 0.9 mg/dL (0.6-1.3); POTASSIUM 3.4 mmol/L (3.5-4.5)
[2023-10-27 21:00] VITALS: BP 120/85; O2SAT 97
== END 2023-10-27 20:57 | disposition home or self-care (01) ==
LOC: ED 19:42
DX: R42 Dizziness and giddiness (principal); Z87.891 Personal history of nicotine dependence
CPT/HCPCS: 36415; 80053; 85025; 93005; 99283; 99284

== ENCOUNTER 2023-12-01 14:46 | Outpatient (CLI) | payer OTHER ==
--- NOTE | 2023-12-01 15:12 | Sleep Patient Instructions ---
Sleep Center Visit Summary - Patient Visit Information Reason for Visit: 1st Compliance follow-up - Patient Instructions Additional Instructions: You were here for follow up of CPAP therapy. You will be continued on CPAP therapy with pressure at 10-14 cmH2O. Please let us know if the pressure change is uncomfortable and we can make further adjustments of the pressure. You should follow up with sleep care in 1-2 months. You may contact us sooner for any questions or concerns. - Clinic Information Contact: [facility] [address] [place] [address] [email or web address] T: [phone]
--- NOTE | 2023-12-01 15:14 | SLEEP CARE CONSULTATION ---
Information from patient questionnaire entered by Seth Dowell. I have reviewed and concur with the information entered by Seth Dowell. This document represents the service I personally performed and the decisions made by me, Sammie Galarza ARNP. History of Present Illness Service Date and Time: 12/01/2023 144 Previous diagnosis: Mild, Obstructive Sleep Apnea-Hypopnea Syndrome AHI: 11.1 (06/26/23) Reason for follow up: first compliance Equipment type: CPAP (RESMED Airsense 10, s/u 08/09/23) Equipment obtained from: Other ([facility]; getting supplies) Mask style: Full face Mask brand: Respironics (Dreamwear) Backup mask available: Yes (old mask) Last cushion change: over a month Prior sleep studies: No Type of Sleep Study: Polysomnography (COMPLETED 06/26/23) HPI additional information: DARIEL GOTTI was diagnosed to have mild, AHI 11.1, obstructive sleep apnea- hypopnea syndrome and returned today for CPAP therapy first compliance follow- up. Sleep Study - Results Type of Sleep Study: Polysomnography (COMPLETED 06/26/23) Prior sleep studies: No CPAP Compliance Data - Data Reviewed with Patient Average duration of nightly device use: 3 HRS 9 MIN Compliance rate %: 13 (10/02/23-10/31/23; 30 days used) Current pressure setting (cmH2O): 4-15 (median 6.6, avg 12.1, max 12.9) Average residual AHI: 3.5 Central apnea: 0.8 Obstructive apnea: 1.4 Hypopnea: 0.9 Average large leak: 1.3 L/min Subjective Missed days of use due to: reports: illness, travel Patient concerns: reports: mask leak noise, dry mouth, nose, throat (dry nose). denies: aerophagia, mask discomfort, air blowing in eyes, condensation in mask/hose, nasal congestion, epistaxis Observed to snore while using device: No Current pressure setting perceived as: comfortable On therapy, patient: reports: sleeping better, awakening more refreshed, more rested overall. denies: drowsiness while driving (only on long trips) Initial [place] Sleepiness Scale score: 9 (02/25/23) Current [place] Sleepiness Scale score: 11 (12/01/23) Allergies and Home Medications Known drug allergies: No Drug allergies reviewed: Yes Home medication list reviewed: Yes (no changes) Allergy and home medication list: Allergies No Known Drug Allergies Allergy (Verified 11/29/23 10:27) Review of Systems Review of systems same as previous: Yes (NO CHANGE) Physical Exam Vital signs obtained and entered by: SETH Leblanc MA Blood Pressure: 136/81 (RIGHT ARM) Cuff size: regular Heart Rate: 75 O2 Saturation: 97 Height: 5 ft 10 in Weight: 214 lb Body Mass Index: 30.7 BMI Classification: Obese Impression and Plan 1. Obstructive Sleep Apnea-Hypopnea Syndrome, mild, with poor treatment compliance and good apnea control. On CPAP therapy, the patient has better sleep quality and is more rested overall. He had to travel and did not take the CPAP. He also has had a respiratory virus that limited his use of the CPAP. His compliance has suffered. He does want to use the CPAP more consistently. The patients pressure will be changed to autoCPAP 10-14 cmH20 to reflect pressure being used. Patient advised to contact me if pressure change is uncomfortable so that it can be adjusted. Goals for apnea control discussed. Patient's apnea severity and rationale for treatment to reduce apnea, improve sleep quality and reduce cardiovascular and cerebrovascular events was reviewed. I also reviewed the benefit of consistent device use of CPAP for gastric reflux. 2. Obesity, unspecified. Currently patients BMI is 30.7. Obesity increases the risk of apnea, CPAP pressure requirements and overall health risks especially cardiovascular and diabetes. Thus patient is advised to lose weight. * Change auto CPAP pressure to 10-14 cmH2O * Notify me if snoring with mask or feeling that the pressure is too much or too little * Attempt to lose weight * Call this office if any problems using CPAP * Return for follow up in 1-2 months, or sooner if concerns arise Adjust device pressure to (cmH2O): 10-14 Counseling Topics: Spare mask, Weight loss health impact Follow up with Sleep Care in: 1-2 months Visit Type: In Office Time Spent with Patient (minutes): 20 Provider Statement: I spent 100% of the Face to Face Visit with the patient with greater than 50% spent counseling the patient and coordination of care.
[2023-12-01 15:20] VITALS: BP 136/81; O2SAT 97
== END 2023-12-01 14:47 | disposition home or self-care (01) ==
LOC: SC 14:46
PROVIDERS: ATTEND Nurse Practitioner Family
DX: G47.33 Obstructive sleep apnea (adult) (pediatric) (principal); E66.9 Obesity, unspecified; Z68.30 Body mass index [BMI] 30.0-30.9, adult
CPT/HCPCS: 99212; 99213

== ENCOUNTER 2024-01-05 15:09 | Outpatient (CLI) | payer OTHER ==
--- NOTE | 2024-01-05 15:30 | Sleep Patient Instructions ---
Sleep Center Visit Summary - Patient Visit Information Reason for Visit: 1 month follow-up - Patient Instructions Additional Instructions: You were here for follow up of CPAP therapy. You will be continued on CPAP therapy with pressure at 11-15 cmH2O. Please let us know if the pressure change is uncomfortable and we can make further adjustments of the pressure. You should follow up with sleep care in 1-2 months. You may contact us sooner for any questions or concerns. - Clinic Information Contact: [facility] [address] [place] [id number] [email or web address] T: [phone]
--- NOTE | 2024-01-05 15:34 | SLEEP CARE CONSULTATION ---
Information from patient questionnaire entered by Seth Dowell. I have reviewed and concur with the information entered by Seth Dowell. This document represents the service I personally performed and the decisions made by , Sammie Galarza ARNP. History of Present Illness Service Date and Time: 01/05/2024 1509 Previous diagnosis: Mild, Obstructive Sleep Apnea-Hypopnea Syndrome AHI: 11.1 (06/26/23) Reason for follow up: one month Equipment type: CPAP (RESMED 10, s/u 08/09/23) Equipment obtained from: Other ([facility]) Mask style: Full face Mask brand: Respironics (Dreamwear) Backup mask available: No Last cushion change: over a month Prior sleep studies: No Type of Sleep Study: Polysomnography (COMPLETED 06/26/23) HPI additional information: DARIEL GOTIT was diagnosed to have mild, AHI 11.1, obstructive sleep apnea- hypopnea syndrome and returned today for CPAP therapy one month after pressure change follow-up. Sleep Study - Results Type of Sleep Study: Polysomnography (COMPLETED 06/26/23) Prior sleep studies: No CPAP Compliance Data - Data Reviewed with Patient Average duration of nightly device use: 3 HRS 6 MINS Compliance rate %: 27 (12/04/23-01/02/24; 21/30 days used) Current pressure setting (cmH2O): 10-14 Average residual AHI: 3.5 Subjective Missed days of use due to: reports: other (comes off without knowing it; shorter nights of sleep due to work schedule) Patient concerns: reports: air blowing in eyes (sometimes). denies: aerophagia, mask discomfort, mask leak noise, condensation in mask/hose, nasal congestion, dry mouth, nose, throat, epistaxis Observed to snore while using device: No Current pressure setting perceived as: too low On therapy, patient: reports: sleeping better, awakening more refreshed, more rested overall, drowsiness while driving (little bit on long trips) Initial [place] Sleepiness Scale score: 9 (02/25/23) Current [place] Sleepiness Scale score: 11 (01/05/24) Allergies and Home Medications Known drug allergies: No Drug allergies reviewed: Yes Home medication list reviewed: Yes (no changes) Allergy and home medication list: Allergies No Known Drug Allergies Allergy (Verified 01/03/24 11:13) Review of Systems Review of systems same as previous: Yes (NO CHANGE) Physical Exam Vital signs obtained and entered by: SETH Leblanc MA Blood Pressure: 128/79 (RIGHT ARM) Cuff size: regular Heart Rate: 71 O2 Saturation: 99 Height: 5 ft 10 in Weight: 219 lb 6.4 oz Body Mass Index: 31.4 BMI Classification: Obese Impression and Plan 1. Obstructive Sleep Apnea-Hypopnea Syndrome, mild, with poor treatment compliance and good apnea control. On CPAP therapy, the patient has better sleep quality and is more rested overall. He has brought his compliance up from his last appointment but is still not at the 70% or more with 4 hours of more. He is trying but sometimes has limited amount of time to get 4 hours or more of sleep nightly. He feels the pressure may be a little low as well. The patients pressure will be changed to autoCPAP 11-15 cmH20. Patient advised to contact me if pressure change is uncomfortable so that it can be adjusted. Goals for apnea control discussed. I am also going to raise the ramp starting pressure to 5 cmH2O for patient comfort. Patient's apnea severity and rationale for treatment to reduce apnea, improve sleep quality and reduce cardiovascular and cerebrovascular events was reviewed. I also reviewed the benefit of consistent device use of CPAP for gastric reflux. 2. Obesity, unspecified. Currently patients BMI is 31.4. Obesity increases the risk of apnea, CPAP pressure requirements and overall health risks especially cardiovascular and diabetes. Thus patient is advised to lose weight. * Increase ramp starting pressure to 5 cmH2O * Change auto CPAP pressure to 11-15 cmH2O * Notify me if snoring with mask or feeling that the pressure is too much or too little * Attempt to lose weight * Call this office if any problems using CPAP * Return for follow up in 1-2 months, or sooner if concerns arise Adjust device pressure to (cmH2O): 11-15 Counseling Topics: Spare mask, Weight loss health impact Follow up with Sleep Care in: 1-2 months () Visit Type: In Office Time Spent with Patient (minutes): 20 Provider Statement: I spent 100% of the Face to Face Visit with the patient with greater than 50% spent counseling the patient and coordination of care.
[2024-01-05 15:49] VITALS: BP 128/79; O2SAT 99
== END 2024-01-05 15:10 | disposition home or self-care (01) ==
LOC: SC 15:09
PROVIDERS: ATTEND Nurse Practitioner Family
DX: G47.33 Obstructive sleep apnea (adult) (pediatric) (principal)
CPT/HCPCS: 99212; 99213

== ENCOUNTER 2024-02-03 15:29 | Outpatient (CLI) | payer OTHER ==
--- NOTE | 2024-02-03 15:48 | Sleep Patient Instructions ---
Sleep Center Visit Summary - Patient Visit Information Reason for Visit: 1 month follow-up - Patient Instructions Additional Instructions: You were here for follow up of CPAP therapy. You will be continued on CPAP therapy with pressure at 10-14 cmH2O. Please let us know if the pressure change is uncomfortable and we can make further adjustments of the pressure. You should follow up with sleep care in 3 months. You may contact us sooner for any questions or concerns. - Clinic Information Contact: [facility] [address] [place] [id number] [email or web address] T: [phone]
--- NOTE | 2024-02-03 15:53 | SLEEP CARE CONSULTATION ---
Information from patient questionnaire entered by Seth Dowell. I have reviewed and concur with the information entered by Seth Dowell. This document represents the service I personally performed and the decisions made by me, Sammie Galarza ARNP. History of Present Illness Service Date and Time: 02/03/2024 152 Previous diagnosis: Mild, Obstructive Sleep Apnea-Hypopnea Syndrome AHI: 11.1 (06/26/23) Reason for follow up: one month Equipment type: CPAP (RESMED 10, s/u 08/09/23) Equipment obtained from: Other ([facility]; getting supplies) Mask style: Full face Mask brand: Respironics (Dreamwear) Backup mask available: No Last cushion change: has not been able to change cushion yet, waiting on supplies Prior sleep studies: No Type of Sleep Study: Polysomnography (COMPLETED 06/26/23) HPI additional information: DARIEL GOTTI was diagnosed to have mild, AHI 11.1, obstructive sleep apnea- hypopnea syndrome and returned today for CPAP therapy one month follow-up. Sleep Study - Results Type of Sleep Study: Polysomnography (COMPLETED 06/26/23) Prior sleep studies: No CPAP Compliance Data - Data Reviewed with Patient Average duration of nightly device use: 3 HRS 0 MINS Compliance rate %: 17 (01/02/24-01/31/24; 17/30 days used) Current pressure setting (cmH2O): 11-15 (avg 14.1) Average residual AHI: 6.0 Central apnea: 0.7 Obstructive apnea: 1.3 Hypopnea: 0.7 Average large leak: 0.8 L/min Subjective Patient concerns: reports: air blowing in eyes, dry mouth, nose, throat (occasional). denies: aerophagia, mask discomfort, mask leak noise, condensation in mask/hose, nasal congestion, epistaxis Observed to snore while using device: No Current pressure setting perceived as: too high On therapy, patient: reports: sleeping better, awakening more refreshed, being more awake and alert during the day, more rested overall. denies: drowsiness while driving Initial [place] Sleepiness Scale score: 9 (02/25/23) Current [place] Sleepiness Scale score: 12 (02/03/24) Allergies and Home Medications Known drug allergies: No Drug allergies reviewed: Yes Home medication list reviewed: Yes (no changes) Allergy and home medication list: Allergies No Known Drug Allergies Allergy (Verified 02/02/24 08:54) Review of Systems Review of systems same as previous: Yes (NO CHANGE) Physical Exam Vital signs obtained and entered by: SETH Leblanc MA Blood Pressure: 132/86 (RIGHT ARM) Cuff size: regular Heart Rate: 76 O2 Saturation: 96 Height: 5 ft 10 in Weight: 221 lb Body Mass Index: 31.7 BMI Classification: Obese Impression and Plan 1. Obstructive Sleep Apnea-Hypopnea Syndrome, mild, with poor treatment compliance and fair apnea control with mildly elevated residual AHI. On CPAP therapy, the patient has better sleep quality and is more rested overall. He feels he is more comfortable with the CPAP but his current cushion is too loose and leaking air. He is waiting on a shipment from his DME to be able to use his CPAP. He feels the pressure is going too high and he will take the mask off while asleep. The patients pressure will be changed to autoCPAP 10-14 cmH20 for elevation of residual AHI. Patient advised to contact me if pressure change is uncomfortable so that it can be adjusted. Goals for apnea control discussed. Patient's apnea severity and rationale for treatment to reduce apnea, improve sleep quality and reduce cardiovascular and cerebrovascular events was reviewed. I also reviewed the benefit of consistent device use of CPAP for gastric reflux. 2. Obesity, unspecified. Currently patients BMI is 31.7. Obesity increases the risk of apnea, CPAP pressure requirements and overall health risks especially cardiovascular and diabetes. Thus patient is advised to lose weight. * Change auto CPAP pressure to 10-14 cmH2O * Notify me if snoring with mask or feeling that the pressure is too much or too little * Attempt to lose weight * Call this office if any problems using CPAP * Return for follow up in 3 months, or sooner if concerns arise Counseling Topics: Spare mask, Weight loss health impact Follow up with Sleep Care in: 3 months Visit Type: In Office Time Spent with Patient (minutes): 15 Provider Statement: I spent 100% of the Face to Face Visit with the patient with greater than 50% spent counseling the patient and coordination of care.
[2024-02-03 15:59] VITALS: BP 132/86; O2SAT 96
== END 2024-02-03 15:30 | disposition home or self-care (01) ==
LOC: SC 15:29
PROVIDERS: ATTEND Nurse Practitioner Family
DX: G47.33 Obstructive sleep apnea (adult) (pediatric) (principal); E66.9 Obesity, unspecified; Z68.31 Body mass index [BMI] 31.0-31.9, adult
CPT/HCPCS: 99212

== ENCOUNTER 2024-04-27 15:10 | Outpatient (CLI) | payer OTHER ==
--- NOTE | 2024-04-27 15:43 | Sleep Patient Instructions ---
Sleep Center Visit Summary - Patient Visit Information Reason for Visit: 3-month follow-up - Patient Instructions Additional Instructions: You were here for follow up of CPAP therapy. You will be continued on CPAP therapy with pressure at 12-14 cmH2O. Please let us know if the pressure change is uncomfortable and we can make further adjustments of the pressure. You should follow up with sleep care in 3 months. You may contact us sooner for any questions or concerns. - Clinic Information Contact: [facility] [address] [place] [id number] [email or web address] T: [phone]
--- NOTE | 2024-04-27 15:48 | SLEEP CARE CONSULTATION ---
Information from patient questionnaire entered by Seth Dowell. I have reviewed and concur with the information entered by Seth Dowell. This document represents the service I personally performed and the decisions made by me, Sammie Galarza ARNP. History of Present Illness Service Date and Time: 04/27/2024 1510 Previous diagnosis: Mild, Obstructive Sleep Apnea-Hypopnea Syndrome AHI: 11.1 (06/26/23) Reason for follow up: three month (F/U) Equipment type: CPAP (RESMED 10, s/u 08/09/23) Equipment obtained from: Other ([facility]; getting supplies) Mask style: Full face Mask brand: Respironics ([employer]wear) Backup mask available: Yes (old mask) Last cushion change: 1 month Prior sleep studies: No Type of Sleep Study: Polysomnography (COMPLETED 06/26/23) HPI additional information: DARIEL GOTTI was diagnosed to have mild, AHI 11.1, obstructive sleep apnea- hypopnea syndrome and returned today for CPAP therapy three month follow-up. Sleep Study - Results Type of Sleep Study: Polysomnography (COMPLETED 06/26/23) Prior sleep studies: No CPAP Compliance Data - Data Reviewed with Patient Average duration of nightly device use: 3 hours 43 minutes Compliance rate %: 9 (01/26/24-04/24/24; days used) Current pressure setting (cmH2O): 10-14 (avg 13.7) Average residual AHI: 6.6 Central apnea: 1.2 Obstructive apnea: 2.8 Hypopnea: 2.6 Average large leak: 0.1 L/min Subjective Missed days of use due to: reports: travel Patient concerns: denies: aerophagia, mask discomfort, air blowing in eyes, mask leak noise, condensation in mask/hose, nasal congestion, dry mouth, nose, throat, epistaxis Observed to snore while using device: No Current pressure setting perceived as: comfortable On therapy, patient: reports: sleeping better, more rested overall. denies: drowsiness while driving (just long trips) Initial [place] Sleepiness Scale score: 9 (02/25/23) Current [place] Sleepiness Scale score: 14 (04/27/24) Allergies and Home Medications Known drug allergies: No Drug allergies reviewed: Yes Home medication list reviewed: Yes (no changes) Allergy and home medication list: Allergies No Known Drug Allergies Allergy (Verified 04/27/24 15:11) Review of Systems Review of systems same as previous: Yes (no changes) Physical Exam Vital signs obtained and entered by: SETH Leblanc MA Blood Pressure: 118/79 (LEFT ARM) Cuff size: regular Heart Rate: 76 O2 Saturation: 96 Height: 5 ft 10 in Weight: 211 lb 12.8 oz Body Mass Index: 30.4 BMI Classification: Obese Impression and Plan 1. Obstructive Sleep Apnea-Hypopnea Syndrome, mild, with poor treatment compliance and fair apnea control with elevated residual AHI. On CPAP therapy, the patient has better sleep quality and is more rested overall. He was out of town for a while and did not take his CPAP. Since returning, he had been trying to use his CPAP. He usually has shorter nights of sleep on days he has to work too. He does state he knows it is important and will try to use it every night. The patients pressure will be changed to autoCPAP 12-14 cmH20 for elevation of residual AHI. Patient advised to contact me if pressure change is uncomfortable so that it can be adjusted. Goals for apnea control discussed. Patient's apnea severity and rationale for treatment to reduce apnea, improve sleep quality and reduce cardiovascular and cerebrovascular events was reviewed. I also reviewed the benefit of consistent device use of CPAP for gastric reflux. 2. Obesity, unspecified. Currently patients BMI is 30.4. Obesity increases the risk of apnea, CPAP pressure requirements and overall health risks especially cardiovascular and diabetes. Thus patient is advised to continue to try to lose weight. * Change auto CPAP pressure to 12-14 cmH2O * Notify me if snoring with mask or feeling that the pressure is too much or too little * Attempt to lose weight * Call this office if any problems using CPAP * Return for follow up in 3 months, or sooner if concerns arise Adjust device pressure to (cmH2O): 12-14 Counseling Topics: Weight loss health impact Follow up with Sleep Care in: 3 months Visit Type: In Office Time Spent with Patient (minutes): 22 Provider Statement: I spent 100% of the Face to Face Visit with the patient with greater than 50% spent counseling the patient and coordination of care.
[2024-04-27 15:50] VITALS: BP 118/79; O2SAT 96
== END 2024-04-27 15:11 | disposition home or self-care (01) ==
LOC: SC 15:10
PROVIDERS: ATTEND Nurse Practitioner Family
DX: G47.33 Obstructive sleep apnea (adult) (pediatric) (principal); E66.9 Obesity, unspecified; Z68.30 Body mass index [BMI] 30.0-30.9, adult
CPT/HCPCS: 99212; 99213